=== PATIENT | female | born 1930 | race Two or more races ===

== ENCOUNTER 2018-05-25 14:42 | Emergency (ER) | payer OTHER ==
[~2018-05-25] VITALS: Ht 152.4 cm; Wt 67.1 kg
[2018-05-25] MEDS ORDERED: CANDESARTAN CIL32 MG (15:14)
[2018-05-25] MEDS ORDERED: LIPITOR20 MG (15:15)
== END 2018-05-27 12:26 | disposition home or self-care (01) ==
LOC: ER 14:42
DX: S06.2X1A Diffuse traumatic brain injury with loss of consciousness of 30 minutes or less, initial encounter (principal); R42 Dizziness and giddiness; W18.09XA Striking against other object with subsequent fall, initial encounter; Y93.89 Activity, other specified; Y92.098 Other place in other non-institutional residence as the place of occurrence of the external cause; Y99.8 Other external cause status
CPT/HCPCS: 70551

== ENCOUNTER 2018-05-27 15:25 | Inpatient (IN) | payer OTHER ==
[~2018-05-27] VITALS: Ht 147.3 cm; Wt 63.5 kg
[~2018-05-27 15:25] MED LIST: CANDESARTAN CIL32 MG; LIPITOR20 MG
== END 2018-06-02 18:01 | disposition home or self-care (01) | DRG 281 ==
LOC: ER 15:25 → ICU-2 18:15 → MEDI 05-31 17:26
PROVIDERS: ADMIT Internal Medicine
PROC: B30 Imaging, Upper Arteries, Plain Radiography (ICD-10-PCS; principal; 2018-05-27)
PROC: 4A033R1 Measurement of Arterial Saturation, Peripheral, Percutaneous Approach (ICD-10-PCS; 2018-05-27)
PROC: B246ZZZ Ultrasonography of Right and Left Heart (ICD-10-PCS; 2018-05-27)
PROC: 0T9B70Z Drainage of Bladder with Drainage Device, Via Natural or Artificial Opening (ICD-10-PCS; 2018-05-27)
PROC: 4A12X4Z Monitoring of Cardiac Electrical Activity, External Approach (ICD-10-PCS; 2018-05-31)
PROC: BW40ZZZ Ultrasonography of Abdomen (ICD-10-PCS; 2018-06-01)
PROC: BW4GZZZ Ultrasonography of Pelvic Region (ICD-10-PCS; 2018-06-01)
DX: I21.4 Non-ST elevation (NSTEMI) myocardial infarction (principal); N39.0 Urinary tract infection, site not specified; I67.2 Cerebral atherosclerosis; S00.03XA Contusion of scalp, initial encounter; I10 Essential (primary) hypertension; E78.00 Pure hypercholesterolemia, unspecified; B96.4 Proteus (mirabilis) (morganii) as the cause of diseases classified elsewhere

== ENCOUNTER → 2019-10-31 | Emergency (ER) | payer OTHER ==
[~2019-10-31] VITALS: Ht 149.9 cm; Wt 61.2 kg
[~2019-10-31] MED LIST changes: +AMLODIPINE-OLM1 EAC2; +ECOTRIN81 MG; +PLAVIX75 MG; +PRAVASTATIN SOD20 MG; +PREVACID30 MG
== END | disposition home or self-care (01) ==
LOC: ER 15:27
DX: R42 Dizziness and giddiness (principal); R51 Headache